=== PATIENT | male | born 1980 | race African-American/Black ===

== ENCOUNTER 2022-10-07 21:29 | Emergency (ER) | payer MEDICAID ==
[~2022-10-07] VITALS: Ht 167.6 cm; Wt 113.6 kg
[2022-10-07 22:00] VITALS: BP 127/77; PULSE 71; RESP 18; TEMP 98.5; O2SAT 97
[2022-10-08] MEDS ORDERED: HYDROcodone-ACET 5/325MG TAB PO ONE (01:45)
[2022-10-08] MEDS ORDERED: IBUP1TAB5 PO (01:48)
== END 2022-10-08 04:16 | disposition home or self-care (01) ==
LOC: ER 21:29
DX: S53.401A Unspecified sprain of right elbow, initial encounter (principal); W22.01XA Walked into wall, initial encounter; Y93.89 Activity, other specified; Y92.89 Other specified places as the place of occurrence of the external cause; Y99.8 Other external cause status
CPT/HCPCS: 73080

== ENCOUNTER 2023-12-20 08:28 | Day surgery (SDC) | payer MEDICAID ==
[2023-12-17 14:02] LABS: Urine Bacteria None Seen /hpf (None Seen)
[2023-12-17 14:08] LABS: Basophils # (auto) 0.1 10 ^3/uL (0-0.2); Hemoglobin 11.6 g/dL (13.5-17.5); Monocytes # (auto) 0.6 10 ^3/uL (0-1.3); Monocytes % (auto) 6.5 % (0.0-12.0); Neutrophils # (auto) 5.1 10 ^3/uL (1.6-8.6); Urine Blood Negative /uL (Negative); Urine Clarity Clear (Clear); Urine Color Light-Yellow (Yellow); Urine Mucus FEW (None Seen); Urine Protein, UAD Negative (Negative); Urine Specific Gravity 1.019 (1.001-1.035); Urine Urobilinogen Normal (Negative); Urine WBC <1 /hpf (0 - 3); White Blood Cell 9.3 10^3/uL (4.4-10.8)
[2023-12-17 14:10] LABS: Basophils % (auto) 1.1 % (0.0-2.0); Eosinophils # (auto) 0.5 10 ^3/uL (0-0.8); Eosinophils % (auto) 5.1 % (0.0-7.0); Hematocrit 36.9 % (41.0-53.0); Lymphocytes % (auto) 32.3 % (10.0-50.0); Mean Corpuscular Hemoglobin 21.8 pg (28.0-32.0); Mean Corpuscular Hgb Conc. 31.4 g/dL (32.0-36.0); Mean Corpuscular Volume 69.3 fL (80.0-100.0); Platelet Count (auto) 337 10^3/uL (140-450); Red Blood Cells 5.32 10^6/uL (4.5-5.90); Red Cell Distribution Width 20.7 % (11.8-14.3)
[2023-12-17 14:25] LABS: INR 1.05 (0.9-1.15); Partial Thromboplastin Time 29.1 SEC (24.5-34.5); Prothrombin Time 11.1 sec (9.3-11.8)
[2023-12-17 14:38] LABS: Alanine Aminotransferase 18 U/L (7-40); Albumin 4.9 g/dL (3.2-4.8); Alkaline Phosphatase 82 U/L (46-116); Anion Gap 3 (5-15); Aspartate Aminotransferase 12 U/L (13-40); BUN/Creatinine Ratio 7.1 (10.0-20.0); Bilirubin, Total 0.5 mg/dL (0.2-1.0); Blood Urea Nitrogen 9 mg/dL (9-23); Carbon Dioxide 28 mmol/L (20-31); Chloride 111 mmol/L (98-107); Glucose 95 mg/dL (74-106); Potassium 4.3 mmol/L (3.5-5.1); Sodium 142 mmol/L (136-145); Total Protein 7.8 g/dL (5.7-8.2)
[~2023-12-20] VITALS: Ht 167.6 cm; Wt 117.9 kg
[~2023-12-20 08:28] MED LIST: ALBU1NEB5 IN; ALL100T PO; AML5T PO; ATOR10TA52 PO; COLC1CAP PO; IBUP1TAB5 PO; OMEP20TA PO
[2023-12-20] MEDS ORDERED: PROPOFOL 10 MG/ML 20 ML IV ONE (10:53)
[2023-12-20] MEDS ORDERED: fentaNYL CITRATE 100 MCG/2 ML VL ONE (10:53)
[2023-12-20 11:05] VITALS: TEMP 97.6; O2SAT 97
[2023-12-20 11:20] VITALS: BP 116/70; PULSE 58; RESP 14; O2SAT 98
== END 2023-12-20 11:50 | disposition home or self-care (01) ==
LOC: GI 08:28
PROVIDERS: ATTEND Internal Medicine Gastroenterology
DX: R19.7 Diarrhea, unspecified (principal); K62.1 Rectal polyp; K57.30 Diverticulosis of large intestine without perforation or abscess without bleeding; K64.8 Other hemorrhoids; I12.9 Hypertensive chronic kidney disease with stage 1 through stage 4 chronic kidney disease, or unspecified chronic kidney disease; N18.2 Chronic kidney disease, stage 2 (mild); K21.9 Gastro-esophageal reflux disease without esophagitis; J45.909 Unspecified asthma, uncomplicated; F11.90 Opioid use, unspecified, uncomplicated; E78.5 Hyperlipidemia, unspecified; F17.210 Nicotine dependence, cigarettes, uncomplicated; Z98.890 Other specified postprocedural states; Z79.899 Other long term (current) drug therapy
CPT/HCPCS: 36415; 45380; 80053; 81001; 85025; 85610; 85730; 88305; J2704; J3010; J7030